=== PATIENT | female | born 1955 | race African-American/Black ===

== ENCOUNTER 2017-03-28 22:29 | Emergency (ER) | payer OTHER ==
[2017-03-28] MEDS ORDERED: Lorazepam 2 MG/ML VIAL ONE (23:10)
[2017-03-28] MEDS ORDERED: Diprivan 20 ML ONE (23:10)
[2017-03-28] MEDS ORDERED: Fentanyl 100 MCG/2 ML VIAL ONE (23:10)
--- NOTE | 2017-03-28 23:28 | RAD ---
EXAM: TWO VIEWS RIGHT SHOULDER 03/28/17 HISTORY: Fall. COMPARISON: There appears to be anterior-inferior dislocation of the humeral head with respect to the glenoid. Po st reduction films are recommended. IMPRESSION: Anterior-inferior dislocation. Post reduction films are recommended. POS: [facility]
--- NOTE | 2017-03-29 07:41 | RAD ---
RIGHT SHOULDER 2 VIEWS: HISTORY: Reduction of anterior dislocation of the right shoulder. FINDINGS/IMPRESSION: There has been interval reduction of the anterior dislocation noted on earlier exam of 10:31 p.m. fro m the same date. Anatomic alignment has been restored. POS: [facility]
== END 2017-03-29 01:42 | disposition home or self-care (01) ==
LOC: ERS 22:29
DX: S43.014A Anterior dislocation of right humerus, initial encounter (principal); E11.9 Type 2 diabetes mellitus without complications; E03.9 Hypothyroidism, unspecified; I10 Essential (primary) hypertension; Z87.891 Personal history of nicotine dependence; Z79.899 Other long term (current) drug therapy; Z79.84 Long term (current) use of oral hypoglycemic drugs; W18.09XA Striking against other object with subsequent fall, initial encounter; Y92.69 Other specified industrial and construction area as the place of occurrence of the external cause
CPT/HCPCS: 23650; 96361; 96374; 96375; 99156; J2060; J2704; J3010

== ENCOUNTER 2023-10-23 12:27 | Outpatient (CLI) | payer BC, MEDICARE | END 2023-10-23 12:28 | disposition home or self-care (01) | LOC: BICMAMMO 12:27 | PROVIDERS: ATTEND Nurse Practitioner Family | DX: Z12.31 Encounter for screening mammogram for malignant neoplasm of breast (principal); Z91.89 Other specified personal risk factors, not elsewhere classified | CPT/HCPCS: 77063; 77067 ==